=== PATIENT | male | born 1975 | race Caucasian/White ===

== ENCOUNTER 2025-05-04 17:45 | Inpatient (IN) | payer MEDICAID, SELFPAY ==
[~2025-05-04] VITALS: Ht 170.2 cm; Wt 98.2 kg
[~2025-05-04 17:45] MED LIST: NO HOME MEDS
--- NOTE | 2025-05-04 17:53 | ELECTROCARDIOGRAPH REPORT ---
[facility] Test Date: 2025-05-04 Test Time: 17:50:57 Pat Name: RODRIGO ROTH Department: EMERGENCY ROOM Room: ORTHO 4009 Gender: M Fulfillment Specialist: : 1975 Requested By: HARVINDER PEREZ Order Number: [id number] Reading MD: Dr. Denilson Rosa Measurements Intervals [place] Rate: 104 P: 25 IA: 147 QRS: 106 QRSD: 95 T: 37 QT: 325 QTc: 428 Interpretive Statements Sinus tachycardia Right axis deviation Electronically Signed On 05-12-2025 18:49:[address] Denilson Rosa Please click the below link to view image of tracing.
--- NOTE | 2025-05-04 18:33 | RADIOLOGY REPORT ---
EXAM: DI CHEST,SINGLE VIEW HISTORY: SOB TECHNIQUE: 1 view of the chest COMPARISON: None FINDINGS/IMPRESSION: LUNGS: Small possible right-sided pleural effusion. MEDIASTINUM: Unremarkable BONES: No acute osseous abnormality OTHER: None
[2025-05-04 20:34] LABS: CREATININE 1.05 MG/DL (0.60-1.10); ETHANOL < 10 MG/DL (<10); MEAN PLATELET VOLUME 8.3 FL (7.4-10.4); PRO BRAIN NATRIURETIC PEPTIDE 35 PG/ML (0-125); RED CELL DISTRIBUTION WIDTH 12.9 % (11.5-14.5); TOTAL CARBON DIOXIDE 26.2 MMOL/L (24-32); eCRCL 78 ML/MIN; eGFR 74 ML/MIN
[2025-05-04] MEDS: ketorolac trometh 30MG/ML vial 30 MG/ML VIAL IM STA (20:59)
--- NOTE | 2025-05-04 21:01 | Physician Documentation ---
History of Present Illness ~ Chief Complaint: Chest Wall Pain Stated Complaint: MULTIPLE MEDICAL COMPLAINTS Time Seen by MD: 18:57 Primary Medical Doctor: DR. HARRIS HPI Patient is seen today with complaints of pain on inspiration in his right chest wall. Patient states he had some vague abdominal pains last few days and states it is now seen to consolidated or now painful in his right lateral chest wall especially on inspiration. Patient states he has had a little cough but no significant fever or chills or body aches or productive cough. He has no other concern or complaint at this time he denies any history of cardiac failure or congestive heart failure. Tetanus within 5 Years?: Yes (2015) Allergies: Coded Allergies: No Known Allergies (Unverified , 06/13/11) Active Prescriptions See Medication Reconciliation Form. Medication Reconciliation Miscellaneous Medications Home Med List (No Home Medications), (Reported) Past Medical History Past Medical History: No Pertinent History Past Surgical History: orthopedic surgeries Alcohol Use: Rarely Drug Use: none Lives with: Spouse Lives In: Home Occupation: employed Review of Systems Constitutional: Denies: chills, fever, weakness Eyes: Denies: pain, blurred vision ENT: Denies: ear pain, nose pain, throat pain, mouth pain Respiratory: Denies: cough, shortness of breath Cardiovascular: Denies: chest pain, palpitations Gastrointestinal: Denies: abdominal pain, nausea, vomiting Genitourinary: Denies: burning, dysuria Male Genitalia: Denies: penile discharge, testicular pain Neurological: Denies: headache, dizziness Musculoskeletal: Denies: pain, swelling Integumentary: Denies: rash, lesions Allergic/Immunologic: Denies: hives, itching Hematologic/Lymphatic: Denies: no symptoms reported Psychiatric: Denies: depression, anxiety Physical Exam Vital Signs: Temperature: 98.6, Source: Temporal, Heart Rate: 98, Respiratory Rate: 18, BP: 136/98, Pulse Oximetry: 98, Weight: 98.200 Oxygen Flow Rate: 0 Physical Exam General: Awake and Alert, no acute distress. HEENT: Conjunctiva pink, Sclera clear, Mucus Membranes moist. Neck: Supple without masses and tenderness. Resp: Unlabored. Lungs clear to auscultation bilaterally. Heart: Regular Rate and rhythm, normal S1 and S2 without murmur, rub or gallop. Abdomen: Patient on exam does have some mild tenderness in the epigastric and right upper quadrant areas without rebound and without guarding and without masses. Extremities: No cyanosis,clubbing or edema. Skin: Warm and Dry. Progress Results/Orders Results/Orders Orders - ALBERT DUNCAN R PAC Hs Troponin I W Calculations (05/04/25 22:54) Ct Chest (05/04/25 21:15) Page Hospitalist (05/04/25 22:57) Fill Out Med Reconciliation (05/04/25 22:57) Saline Lock (05/04/25 ) Ct Abdomen Pelvis (05/04/25 22:57) Completed Orders - ALBERT DUNCAN R PAC Cbc/Diff (05/04/25 19:54) MG (05/04/25 19:54) Lipase (05/04/25 19:54) PBNP (05/04/25 19:54) Ethanol (05/04/25 19:54) BMP (05/04/25 19:54) Hs Troponin I W Calculations (05/04/25 19:54) Hs Troponin I W Calculations (05/04/25 21:54) Ketorolac Trometh 30mg/Ml Vial (Toradol (05/04/25 20:59) Ct Chest (05/04/25 21:15) Iohexol 300mg/Ml 100ml Inj. (Omnipaque-3 (05/04/25 23:01) Medications Received in ER Medications (Trade) Dose Ordered Sig/Poly Route PRN Reason Start Time Stop Time Status Last Admin Dose Admin (Toradol inj. 30mg/ml) 30 mg ONCE STAT IM 05/04/25 20:59 05/04/25 21:08 DC 05/04/25 20:59 30 MG Vital Signs 05/04/25 05/04/25 05/04/25 17:57 19:58 22:01 Temp 97.8 98.6 Pulse 99 98 Resp 18 B/P (MAP) 138/90 136/98 (111) Pulse Ox 97 98 O2 Flow Rate 0 Laboratory Tests Test 05/04/25 20:06 05/04/25 22:07 White Blood Count 7.5 Red Blood Count 4.65 L Hemoglobin 14.2 Hematocrit 40.1 L Mean Corpuscular Volume 86.2 Mean Corpuscular Hemoglobin 30.5 Mean Corpuscular Hemoglobin Concent 35.4 Red Cell Distribution Width 12.9 Platelet Count 280 Mean Platelet Volume 8.3 Neutrophils (%) (Auto) 75.8 H Lymphocytes (%) (Auto) 8.3 L Monocytes (%) (Auto) 8.7 Eosinophils (%) (Auto) 6.8 H Basophils (%) (Auto) 0.4 Neutrophils # (Auto) 5.7 Lymphocytes # (Auto) 0.6 L Monocytes # (Auto) 0.7 Eosinophils # (Auto) 0.5 Basophils # (Auto) 0.0 CBC Comment Sodium Level 135 Potassium Level 3.8 Chloride Level 102 Carbon Dioxide Level 26.2 Anion Gap 7 L Blood Urea Nitrogen 16 Creatinine 1.05 Estimated GFR/1.73 m2 74 BUN/Creatinine Ratio 15.2 Glucose Level 96 Calcium Level 8.2 L Magnesium Level 2.0 Troponin I High Sensitivity 9 7 Pro-B-Type Natriuretic Peptide 35 Albumin 3.5 Lipase 18 Chemistry Comments Ethyl Alcohol Level < 10 Troponin I High Sens Percent Delta 22 Troponin I Hi Sens Absolute Change -2 EKG/XRAY/CT/US/VASC/MRI Chest X-Ray : Additional Comments Chest x-ray interpreted by myself today shows possible right pleural effusion. Normal mediastinum, no large infiltrate. DIAGNOSTIC RADIOLOGY Patient: RODRIGO ROTH Medical Record: [id number] [facility] : 1975, Age: 50 Sex: Male Location: ER Patient Status: REG ER Service Date/Time: 05/04/251815 Ordering Physician: HARVINDER PEREZ MD Exam: CHEST,SINGLE VIEW EXAM: DI CHEST,SINGLE VIEW HISTORY: SOB TECHNIQUE: 1 view of the chest COMPARISON: None FINDINGS/IMPRESSION: LUNGS: Small possible right-sided pleural effusion. MEDIASTINUM: Unremarkable BONES: No acute osseous abnormality OTHER: None Electronically Signed by:ROBERT JONES MD Date & Time: 05/04/251829 Dictated by: ROBERT JONES MD Dictation date and time: 05/04/251829 Primary Care Provider: NO PRIMARY CARE PROVIDER cc: HARVINDER PEREZ MD ~ CT : Impression CAT SCAN Patient: RODRIGO ROTH Medical Record: [id number] [facility] : 1975, Age: 50 Sex: Male Location: ER Patient Status: [facility] ER Service Date/Time: 05/04/252114 Ordering Physician: ALBERT DUNCAN PAC Exam: CT CHEST EXAM: CT CT CHEST History: pleural effusion Comparison Study: DI CHEST,SINGLE VIEW on DOS: 05/04/25 TECHNIQUE: Multidetector CT of the chest was performed. Imaging was performed without IV contrast. Axial, coronal, and sagittal multiplanar reformats were obtained from the axial data set by the technologist. Radiation Dose : CTDI vol 18.68 mGy, DLP 652.6 mGy*cm. Findings: Evaluation is degraded by respiratory motion. Lungs/pleura: There small bilateral pleural effusions with adjacent opacity. Heart/Great vessels: No cardiomegaly. Trace pericardial effusion. Mild coronary artery calcifications. The aorta is unremarkable. Mediastinum: Borderline mediastinal and axillary nodes. Soft tissues/Bones: Unremarkable Upper abdomen: Incompletely assessed upper abdominal nodes measuring up to 17 mm short axis. Impression: 1. Small bilateral pleural effusions with adjacent atelectasis. 2. Incompletely assessed upper abdominal adenopathy. Borderline mediastinal and axillary nodes. Further clinical correlation is suggested. 3. Additional findings as detailed. Electronically Signed by:ROBERT JONES MD Date & Time: 05/04/252213 Dictated by: ROBERT JONES MD Dictation date and time: 05/04/252114 Primary Care Provider: NO PRIMARY CARE PROVIDER cc: ALBERT DUNCAN PAC ~ Medical Decision Making Findings Patient is seen today with complaints of pain on inspiration in his right chest wall. Patient states he had some vague abdominal pains last few days and states it is now seen to consolidated or now painful in his right lateral chest wall especially on inspiration. Patient states he has had a little cough but no significant fever or chills or body aches or productive cough. He has no other concern or complaint at this time he denies any history of cardiac failure or congestive heart failure. Patient did have chest x-ray and CT scan which did show pleural effusions as well as some concerning adenopathy of the upper abdomen. CT scan of the abdomen and pelvis with contrast was ordered and patient was admitted to the hospital and hospitalist consulted. Departure Disposition: ADMITTED INPATIENT Admitted to Inpatient Unit: to hospitalist Admission Level of Care: Med/Surg Impression: Primary Impression: Pleural effusion Additional Impressions: Abdominal pain Qualified Codes: R10.11 - Right upper quadrant pain Chest pain Qualified Codes: R07.1 - Chest pain on breathing Condition: Stable Additional Instructions: Patient did have chest x-ray and CT scan which did show pleural effusions as well as some concerning adenopathy of the upper abdomen. CT scan of the abdomen and pelvis with contrast was ordered and patient was admitted to the hospital and hospitalist consulted. Referrals: NO PRIMARY CARE PROVIDER (PCP) Signature Scribe Signature: No scribe Attestation: No scribe ALBERT DUNCAN PAC May 04, 2025 21:01
--- NOTE | 2025-05-04 22:17 | RADIOLOGY REPORT ---
EXAM: CT CT CHEST History: pleural effusion Comparison Study: DI CHEST,SINGLE VIEW on DOS: 05/04/25 TECHNIQUE: Multidetector CT of the chest was performed. Imaging was performed without IV contrast. Axial, coronal, and sagittal multiplanar reformats were obtained from the axial data set by the technologist. Radiation Dose : CTDI vol 18.68 mGy, DLP 652.6 mGy*cm. Findings: Evaluation is degraded by respiratory motion. Lungs/pleura: There small bilateral pleural effusions with adjacent opacity. Heart/Great vessels: No cardiomegaly. Trace pericardial effusion. Mild coronary artery calcifications. The aorta is unremarkable. Mediastinum: Borderline mediastinal and axillary nodes. Soft tissues/Bones: Unremarkable Upper abdomen: Incompletely assessed upper abdominal nodes measuring up to 17 mm short axis. Impression: 1. Small bilateral pleural effusions with adjacent atelectasis. 2. Incompletely assessed upper abdominal adenopathy. Borderline mediastinal and axillary nodes. Further clinical correlation is suggested. 3. Additional findings as detailed.
[2025-05-04] MEDS ORDERED: iohexol 300mg/ml 100ml inj. ONE (23:01)
[2025-05-04] MEDS ORDERED: potassium Cl 20 mEq SR tablet PO PRN ×2 (23:10)
[2025-05-04] MEDS ORDERED: magnesium sulf-water 2g/50mL 50 ML IV PRN (23:10)
[2025-05-04] MEDS ORDERED: HYDROcodone/acetaminophen 5mg/325mg tablet PO PRN (23:10)
[2025-05-04] MEDS ORDERED: magnesium hydroxide 30ml (MOM) UD suspension PO PRN (23:10)
[2025-05-04] MEDS ORDERED: magnesium sulf-water 4G/100mL 100 ML IV PRN (23:10)
[2025-05-04] MEDS ORDERED: potassium Cl 40MEQ/1/2NS 520ml 520 ML IV PRN (23:10)
[2025-05-04] MEDS ORDERED: ondansetron/PF 4mg/2ml inj IV PRN (23:10)
[2025-05-04] MEDS ORDERED: mag hydrox/Alum hydrox/simeth 30ml oral suspension PO PRN (23:10)
[2025-05-04] MEDS ORDERED: magnesium Cl slow-release 64mg tablet PO PRN (23:10)
--- NOTE | 2025-05-04 23:45 | RADIOLOGY REPORT ---
Exam: CT CT ABDOMEN PELVIS W/ IV CONTRAST History: adenopathy, abd pain Comparison Study: None TECHNIQUE: A digital ammonia distiller image was obtained. During the uneventful, intravenous administration of contrast material, multislice data acquisition was obtained through the abdomen and pelvis. The data set was subsequently reconstructed into multiplanar reformats. RADIATION DOSE: CTDI vol 32.32 mGy. DLP 7055.69 mGy.cm Findings: Lungs: Small bilateral pleural effusions with adjacent opacity. Liver: Unremarkable. Spleen: There is splenomegaly measuring up to 14.2 cm. Pancreas: Unremarkable. Gallbladder: Unremarkable. Adrenals: Unremarkable Kidneys: Right renal cyst. No hydronephrosis. Pelvic Viscera: Unremarkable. Vasculature: Mild atherosclerotic aortoiliac calcification. Retroperitoneum: There is nonspecific upper abdominal adenopathy measuring up to 18 mm short axis. Bowel: No bowel obstruction. The appendix is normal. Musculoskeletal: Unremarkable. Soft tissues: Unremarkable Impression: 1. Splenomegaly. Nonspecific upper abdominal adenopathy. Further clinical correlation suggested.
--- NOTE | 2025-05-04 23:45 | HISTORY AND PHYSICAL-Residence ---
History & Physical Providers to CC Resident Creating Document: NELLY WILLINGHAM RES ~ History of Present Illness Primary Medical Doctor: DR. HARRIS Reason for Admit\Complaint: Pleuritic chest pain/acute cholecystitis History of Present Illness This is a 50-year-old male with no significant past medical history who presented to the ER with complaints of right-sided chest pain. He explained that his chest pain is on the right lateral aspect since 2 days, sharp, 5/10, worse with deep inspiration, nonradiating. He also mentioned that it gets worse after he eats and is relieved with pain medication. A couple of days before this he had lower quadrant abdominal pain, dull aching, 4/10, nonradiating. No complaints of nausea/vomiting, constipation/diarrhea, blood in stools, black tarry stools, palpitation, dizziness, lightheadedness, leg swelling, fever with chills, jaundice. Allergies: Coded Allergies: No Known Allergies (Unverified , 06/13/11) Home Medications Home Medications Active Reported No Home Medications (Home Med List) Each Past Medical History Past Medical History Nothing significant Past Surgical History Surgical History Comment Surgery for herniated disc in 2002 Past Social History Smoking: Non-Smoker Alcohol Use: Rarely (1-2 drinks every 2 months) Drug Use: None, Marijuana (4-5 joints a day) Lives with: Mother, Spouse Lives In: Home Occupation: employed ([id number]) ROS Constitutional: Denies: chills, fever, weakness Eyes: Denies: pain, blurred vision ENT: Denies: ear pain, nose pain, throat pain, mouth pain Respiratory: Denies: cough, shortness of breath Cardiovascular: Denies: chest pain, palpitations Gastrointestinal: Denies: abdominal pain, nausea, vomiting Genitourinary: Denies: burning, dysuria Male Genitalia: Denies: penile discharge, testicular pain Neurological: Denies: headache, dizziness Musculoskeletal: Denies: pain, swelling Integumentary: Denies: rash, lesions Allergic/Immunologic: Denies: hives, itching Hematologic/Lymphatic: Denies: no symptoms reported Psychiatric: Denies: depression, anxiety Exam Vitals: Vital Signs Date Time Temp Pulse Resp B/P (MAP) Pulse Ox O2 Delivery O2 Flow Rate FiO2 05/04/25 22:01 05/04/25 19:58 98.6 98 98 05/04/25 17:57 18 0 General: General: Well alert, well oriented, not confused, not agitated, not in acute distress, well cooperated during the physical. HEENT: Conjunctive are pink, sclerae clear, no icterus, pupil is equal in both sides, reactive to light, no ear discharge, no pharyngeal erythema or an edema. Neck: Supple, no JVD, no lymphadenopathy and thyromegaly. Chest: Equal air entry on both lungs, no added sounds, no wheeze. Cardiovascular: S1-S2 regular sinus rhythm and, regular rate, no gallops, no rubs, no murmurs Abdomen: No visible peristalsis, Bowel sounds present on auscultation, soft, tenderness on deep palpation in right upper quadrant, no guarding, no rigidity Extremities: No obvious deformities, no pitting edema bilaterally, capillary refill intact, peripheral pulsations are intact on both sides Central Nervous System: No focal neurological deficits, no motor or sensory weakness in all 4 extremities, could move all 4 extremities, 2+ deep tendon reflexes, negative Babinski. Musculoskeletal: No joint swelling, deformities, inflammations, and no scoliosis and back tenderness Skin: Warm and dry. Diagnostic Data Last Recorded Lab Results: 05/04/25200505/04/252005 Counseling Services Smoking & Tobacco Cessation: N/A Advance Care Planning Advanced Care plannin - 30 Minutes (Full code) Additional Plan Assessment: This is a 50-year-old male with no significant past medical history who presented to the ER with complaints of right-sided chest pain. Plan: Right sided lateral chest pain -pleuritic pain v/s acute cholecystitis Vitals: Temperature 98.6, blood pressure 136/98, pulse ox 98, pulse 98 WBC 7.5, neutrophils 75.8% Serial troponin negative, NT proBNP 35 Lipase 3.5 EKG: Sinus rhythm, normal R-wave progression, normal QRS complex, no ST segment elevation, normal T-wave morphology. Chest x-ray: Small possible right-sided pleural effusion. Chest CT: Impression: 1. Small bilateral pleural effusions with adjacent atelectasis. 2. Incompletely assessed upper abdominal adenopathy. Borderline mediastinal and axillary nodes. Further clinical correlation is suggested. Plan: Ordered LFT, inflammatory markers including ESR CRP procalcitonin Ordered urinalysis, urine tox, TSH, hemoglobin A1c, lipids, echo. Ordered CT abdomen. One dose of ketorolac 30 mg IV administered in the ER, we will stay clear of pain medication which can cause gastritis Pain control with morphine/[place] p.r.n. Code status: Full code DVT prophylaxis: SCDs Analgesia/sedation: Morphine/[place] p.r.n. Line/tube: PIV GI prophylaxis: Protonix Nutrition: Regular diet PT: Ordered. Prognosis: Guarded Disposition: Admit to ortho Nelly Willingham MD PGY1, Internal Medicine [facility] Date of Service: May 04, 2025 Billing Provider: GABINO OROSCO MD Common Visit Codes: [id number]-CYLTEZH INP/OBS CARE (HIGH) Assessment/Plan Assessment Evaluated the patient with the help of residents. Discussed the case with them. Reviewed notes by the resident. Agree with her assessment and plans. Also reviewed the patient's records including labs radiology and notes from other providers. No additional points at this time. NELLY WILLINGHAM, RES May 04, 2025 23:45 GABINO OROSCO MD May 05, 2025 01:37
[2025-05-05] VITALS (8 sets, daily range): BP systolic 120–136; BP diastolic 80–94; PULSE 75–80; RESP 14–20; TEMP 96.1–98.4; O2SAT 92–98
[2025-05-05 06:52] LABS: MEAN PLATELET VOLUME 8.1 FL (7.4-10.4); RED CELL DISTRIBUTION WIDTH 13.3 % (11.5-14.5)
[2025-05-05 07:21] LABS: CHOL/HDL RATIO 5.1 (0.00-4.99); CREATININE 0.90 MG/DL (0.60-1.10); LDL CHOLESTEROL 115 MG/DL (50-100); TOTAL CARBON DIOXIDE 25.0 MMOL/L (24-32); eCRCL 91 ML/MIN; eGFR 89 ML/MIN
[2025-05-05] MEDS: K and/or MAG REPLACEMENT MC SCH (08:00)
[2025-05-05] MEDS: docusate sod 100mg capsule PO SCH (09:27)
[2025-05-05] MEDS: pantoprazole 40mg Tablet.DR PO SCH (09:27)
--- NOTE | 2025-05-05 17:00 | RADIOLOGY REPORT ---
Technique: Real-time ultrasound imaging of the abdomen was performed with grayscale and color Doppler. Indication: upper right quadrant lymphadenopathy Comparison: None Findings: Liver measures 13 cm. It is increased in echogenicity and echotexture without focal mass. Portal vein is normal in caliber and demonstrates normal hepatopetal flow. Gallbladder demonstrates no evidence for cholelithiasis. There is no pericholecystic fluid. The wall thickness is normal. The common bile duct measures 6 mm. No intrahepatic biliary ductal dilatation. The right kidney measures 10.9 cm. The left kidney measures 10.5 cm. No hydronephrosis or sonographic evidence of nephrolithiasis. The visualized portion of the pancreas is unremarkable. Spleen measures 12.7 cm. The visualized portion of the IVC is unremarkable. Impression: Echogenic liver which can be seen with hepatic steatosis, cirrhosis.
[2025-05-05 17:01] LABS: LEUKOCYTE ESTERASE ,URINE TRACE (Neg); NITRITES, URINE NEGATIVE (Neg); OCCULT BLOOD,URINE NEGATIVE (Neg)
[2025-05-05 17:05] LABS: UA COLLECTION TYPE CLN CATCH MIDSTREAM
[2025-05-05 17:07] LABS: SQUAMOUS EPITHELIAL CELL,UR NONE SEEN /LPF (FEW)
[2025-05-05 17:11] LABS: URINE AMPHETAMINE SCREEN POSITIVE (Neg); URINE BARBITUATE SCREEN NEGATIVE (Neg); URINE BENZODIAZEPINES SCREEN NEGATIVE (Neg); URINE CANNABINOID SCREEN POSITIVE (Neg); URINE COCAINE SCREEN NEGATIVE (Neg); URINE METHADONE SCREEN NEGATIVE (Neg); URINE OPIATE SCREEN NEGATIVE (Neg); URINE PHENCYCLIDINE SCREEN NEGATIVE (Neg)
[2025-05-05] MEDS: HYDROcodone/acetaminophen 10/325mg tab PO PRN (17:18)
--- NOTE | 2025-05-05 19:03 | CARDIOLOGY REPORT ---
APPROVED REPORT EXAM: Comprehensive 2D, Doppler, and color-flow Echocardiogram. 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 3.26 cm IVC 19.52 mm FS (%) 34.8 % SV 52.2 ml CO 3.7 L/min M-Mode Dimensions MV EPSS 0.4 (<0.5cm) Aortic Valve AoV Peak Cali. 146.0 cm/s AoV VTI 27.2 cm AO Peak GR. 8.5 mmHg AO Mean GR. 5 mmHg LVOT VTI 22.97 cm LVOT Peak Cali. 114.6 cm/s ENMANUEL(VTI)/BSA 3.36 cm2/m2 ENMANUEL (VTI) 3.36 cm2 Mitral Valve MV E Velocity 89.4 cm/s MV Peak Gr. 4 mmHg MV DECEL TIME 192 ms MV A Velocity 79.3 cm/s MV PHT 44 ms E/A Ratio 1.1 MVA (PHT) 5.00 cm2 MV VMax 105.1 cm/s TDI Medial E' P. V 13.08 cm/s E/Medial E' 6.8 Tricuspid Valve TR P. Velocity 293 cm/s RAP ESTIMATE 10 mmHg TR Peak Gr. 34 mmHg RVSP 44 mmHg Pulmonary Vein S1 Velocity 49.5 cm/s D2 Velocity 47.3 cm/s PVa Velocity 30.1 cm/s PVa Duration 92 msec LEFT VENTRICLE Normal LV size and function. Mild concentric hypertrophy. LVEF is 60-65%. RIGHT VENTRICLE RV appears moderately dilated with normal contractility. RVSP is estimated at 44 mmHG. ATRIA Left atrium is mildly dilated. AORTIC VALVE Trileaflet AV appears sclerotic without stenosis. No insufficiency. MITRAL VALVE MV is thickened with no annular calcification or stenosis. Trace mitral regurgitation. TRICUSPID VALVE The tricuspid valve is normal in structure. Trace tricuspid regurgitation. PULMONIC VALVE The pulmonary valve is normal in structure. Trace pulmonic regurgitation. GREAT VESSELS The aortic root is normal in size. The ascending aorta is normal in size. The IVC is normal in size and collapses >50% with inspiration. PERICARDIUM There is no pericardial effusion. Other Information Study Quality: Adequate Conclusion Normal LV size and function. Mild concentric hypertrophy. LVEF is 60-65%. RV appears moderately dilated with normal contractility. RVSP is estimated at 44 mmHG. Left atrium is mildly dilated. Trileaflet AV appears sclerotic without stenosis. No insufficiency. MV is thickened with no annular calcification or stenosis. Trace mitral regurgitation. The tricuspid valve is normal in structure. Trace tricuspid regurgitation. The pulmonary valve is normal in structure. Trace pulmonic regurgitation. There is no pericardial effusion.
--- NOTE | 2025-05-05 23:10 | PROGRESS NOTE ---
Daily Progress Note Providers to CC ~ Antibiotic Timeout Antibiotic Ordered?: No Subjective Patient continues to experience lower ribcage pain bilaterally greater on the right with a deep breaths otherwise the patient has no acute complaints in his otherwise stable Objective Vital Signs Date Time Temp Pulse Resp B/P (MAP) Pulse Ox O2 Delivery O2 Flow Rate FiO2 05/05/25 22:00 97.7 80 16 135/88 (104) 92 Room Air 05/05/25 15:34 0 21 Result Diagram: 05/05/2561305/05/25613 Gen. No acute distress alert and oriented 4 Lungs clear to ascultation bilaterally, no wheezes rales or rhonchi appreciated Heart normal sinus rhythm no murmurs rubs or clicks noted Abdomen soft mild tenderness to right upper quadrant negative Miranda's sign bowel sounds are normoactive Lower extremities no clubbing cyanosis, nor edema appreciated bilaterally Problem\Assessment\Plan Problems/Diagnosis: (1) Abdominal pain # right lateral ribcage/pleuritic pain Cholecystitis is ruled out negative CT and negative abdominal ultrasound Possibly secondary the ribcage strain Date of Service: May 05, 2025 Billing Provider: STERLING SPEARS DO Common Visit Codes: [id number] INP/OBS CARE(HIGH) Problem Qualifiers (1) Abdominal pain: Qualified Codes: R10.11 - Right upper quadrant pain STERLING SPEARS DO May 05, 2025 23:10
[2025-05-06 05:35] LABS: MEAN PLATELET VOLUME 8.4 FL (7.4-10.4); RED CELL DISTRIBUTION WIDTH 13.0 % (11.5-14.5)
[2025-05-06 05:57] LABS: CREATININE 0.75 MG/DL (0.60-1.10); TOTAL CARBON DIOXIDE 27.2 MMOL/L (24-32); eCRCL 109 ML/MIN; eGFR > 90 ML/MIN
[2025-05-06 06:00] VITALS: BP 122/88; PULSE 80; RESP 15; TEMP 98; O2SAT 92
--- NOTE | 2025-05-06 22:58 | DISCHARGE SUMMARY ---
Discharge Summary Providers to CC ~ Discharge Summary Admission Diagnosis: Pleuritis Hospital Course DATE OF ADMISSION: 05/04/2025 DATE OF DISCHARGE: 05/06/2025 Discharge Diagnosis\\Comment: Right lateral ribcage pain Hyperlipidemia Operations\\Procedures: None Consultants: None Complications: None Condition on DC: Stable Continued Medications: Home Med List (No Home Medications) Each Discharge Summary: The patient was admitted by resident physician NELLY Pendleton , under the supervision of GABINO Sacnhez MD with the following HPI:"This is a 50-year-old male with no significant past medical history who presented to the ER with complaints of right-sided chest pain. He explained that his chest pain is on the right lateral aspect since 2 days, sharp, 5/10, worse with deep inspiration, nonradiating. He also mentioned that it gets worse after he eats and is relieved with pain medication. A couple of days before this he had lower quadrant abdominal pain, dull aching, 4/10, nonradiating. No complaints of nausea/vomiting, constipation/diarrhea, blood in stools, black tarry stools, palpitation, dizziness, lightheadedness, leg swelling, fever with chills, jaundice." The patient's CT scan of the abdomen and pelvis demonstrated splenomegaly which was mild the patient has a abdominal ultrasound which demonstrated echogenic liver which can be seen with hepatic steatosis versus cirrhosis the patient is spleen was normal size on CT scan. The patient continued to have some discomfort however this was on the left upper quadrant of the abdomen on the following morning of the The patient has hyperlipidemia with a triglyceride level 98 total cholesterol 158 LDL of 115 however and a HDL of 31 I did consider starting atorvastatin however spoke with the patient and he will follow up with his primary care provider and repeat labs I have recommended three months. Gen. No acute distress alert and oriented 4 Lungs clear to ascultation bilaterally, no wheezes rales or rhonchi appreciated Heart normal sinus rhythm no murmurs rubs or clicks noted Abdomen soft mild left upper quadrant tenderness bowel sounds are normoactive Lower extremities no clubbing cyanosis, nor edema appreciated bilaterally The patient felt ready to be discharged and was medically cleared to be discharged on 05/06/2025 The patient was seen and evaluated on day of discharge. Time spent on discharge 25 minutes *Problems/Diagnosis: (1) Abdominal pain Status: Acute Total Time Spent on D/C: Up to 30 Minutes Date of Service: May 06, 2025 Billing Provider: STERLING SPEARS DO Common Visit Codes: 12857-ISG/OBS DISCH DAY <30MIN Problem Qualifiers (1) Abdominal pain: Qualified Codes: R10.11 - Right upper quadrant pain STERLING SPEARS DO May 06, 2025 22:58
== END 2025-05-06 13:36 | disposition home or self-care (01) | DRG 145 ==
LOC: ER 17:45 → ED HOLD 23:12 → EDBEDREQ 05-05 00:09 → ORTHO 4S 05-05 01:48
PROVIDERS: ADMIT Internal Medicine Critical Care Medicine; ATTEND Family Medicine
PROC: BW211ZZ Computerized Tomography (CT Scan) of Abdomen and Pelvis using Low Osmolar Contrast (ICD-10-PCS; principal; 2025-05-04)
DX: R07.81 Pleurodynia (principal); J90 Pleural effusion, not elsewhere classified; Z20.822 Contact with and (suspected) exposure to COVID-19; R10.11 Right upper quadrant pain; E78.5 Hyperlipidemia, unspecified
CPT/HCPCS: 36415; 71045; 74177; 76700; 80048; 80053; 80061; 80305; 80320; 81001; 82248; 83036; 83605; 83690; 83735; 83880; 84145; 84484; 85025; 85651; 86140; 87081; 87811; 93005; 93306; 96372; 99285; G0378; J1885; Q9967